=== PATIENT | female | born 1990 | race African-American/Black ===

== ENCOUNTER 2018-06-10 09:14 | Outpatient (CLI) | payer BC ==
--- NOTE | 2018-06-10 19:55 | ULT ---
PELVIC ULTRASOUND WITH ENDOVAGINAL IMAGING 06/10/18 Ultrasonography of the pelvis was performed with the abdominal probe initially. Further images were obtained with the endovaginal probe to see the ovaries better. The uterus appears normal and measures 9.5 x 5.9 x 5.7 cm. The endometrium is a normal 8 mm thick. Ri ght ovary was 3.7 cm long and the left ovary was 3.4 cm. No mass or cyst was seen in either. Blood fl ow was present bilaterally. There is no significant free fluid. IMPRESSION: Unremarkable pelvic ultrasound. POS: HOME
== END 2018-06-10 09:15 | disposition home or self-care (01) ==
LOC: BURULT 09:14
PROVIDERS: ATTEND Physician Assistant
DX: N92.6 Irregular menstruation, unspecified (principal)
CPT/HCPCS: 76856

== ENCOUNTER 2019-05-24 12:02 | Outpatient (CLI) | payer BC ==
--- NOTE | 2019-05-24 12:38 | RAD ---
3 views lumbar spine: 05/24/2019 COMPARISON: None HISTORY: Back pain, left-sided sciatica FINDINGS: Lumbar pedicles appear intact on frontal imaging. Lateral examination demonstrates normal l umbar vertebral body height and alignment. No acute osseous abnormality noted. IMPRESSION: No acute findings.
== END 2019-05-24 12:03 | disposition home or self-care (01) ==
LOC: BURRAD 12:02
PROVIDERS: ATTEND Physician Assistant
DX: M54.42 Lumbago with sciatica, left side (principal)
CPT/HCPCS: 72100

== ENCOUNTER 2023-03-31 14:11 | Outpatient (CLI) | payer BC | END 2023-03-31 14:12 | disposition home or self-care (01) | LOC: BURRAD 14:11 | PROVIDERS: ATTEND Physician Assistant | DX: M54.12 Radiculopathy, cervical region (principal); M47.892 Other spondylosis, cervical region | CPT/HCPCS: 72040 ==